=== PATIENT | female | born 1970 | race Caucasian/White ===

== ENCOUNTER 2025-04-22 08:55 | Outpatient (CLI) | payer BC | END 2025-04-22 08:56 | disposition home or self-care (01) | LOC: CSHSLEEP 08:55 | PROVIDERS: ATTEND Internal Medicine | DX: G47.33 Obstructive sleep apnea (adult) (pediatric) (principal); K21.9 Gastro-esophageal reflux disease without esophagitis; F32.A Depression, unspecified; I10 Essential (primary) hypertension | CPT/HCPCS: 95800 ==